=== PATIENT | male | born 1950 | race Caucasian/White ===

== ENCOUNTER 2017-04-01 21:16 | Emergency (ER) | payer MEDICARE, BC ==
[2017-04-01 22:04] VITALS: BP 164/72
[2017-04-01] MEDS ORDERED: Ketorolac 30 MG/ML SDV IM ONE (22:19)
--- NOTE | 2017-04-01 22:27 | EDM.PDOC ---
ED HPI GENERAL MEDICAL PROBLEM - General Chief Complaint: Back Pain or Injury Stated Complaint: PULLED MUSCLE [id number] Time Seen by Provider: 04/01/17 22:15 Source of Information: Reports: Patient History Limitations: Reports: No Limitations - History of Present Illness INITIAL COMMENTS - FREE TEXT/NARRATIVE: Patient has emergency department today complaining of mid left-sided back pain and muscle spasm that started tonight. 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 Once he got home he developed a severe pain under his left scapula in his left back. He denies any falls or trauma to the area. He denies any rash to the area. He denies any lower back pain. He denies any numbness or tingling to his lower extremities. He denies any change functionality of his lower extremity. He denies any loss of bowel or bladder habits. He has tried some Tylenol as well as his naproxen and tramadol without relief of the pain. He has also tried ice or heat or massage to the area without improvement of the pain. Upper Back Pain Score (Numeric/FACES): 8 - Related Data Allergies Allergy/AdvReac Type Severity Reaction Status Date / Time narcotic pain meds Allergy Hallucinati Uncoded 04/01/17 21:55 ons Home Meds: Home Meds Carvedilol [Carvedilol] 3.125 mg PO DAILY 05/08/15 [History] Hydrochlorothiazide 25 mg PO DAILY 05/08/15 [History] Levothyroxine 125 mcg PO ACBREAKFAST 05/08/15 [History] Naproxen [Naproxen] 500 mg PO DAILY PRN 05/08/15 [History] traMADol [Ultram] 50 mg PO Q4H PRN 05/08/15 [History] Hydroxychloroquine Sulfate 200 mg PO BID 04/01/17 [History] Tamsulosin HCl [Flomax] 0.4 mg PO DAILY 04/01/17 [History] sulfaSALAzine [sulfaSALAzine DR] 500 mg PO DAILY 04/01/17 [History] Past Medical History HEENT History: Reports: Hard of Hearing, Impaired Vision Cardiovascular History: Reports: Automatic Implantable Cardioverter Defibrillators, Heart Valve Replacement, High Cholesterol, Pacemaker Genitourinary History: Reports: Prostate Disorder Musculoskeletal History: Reports: Arthritis, Osteoarthritis - Past Surgical History Cardiovascular Surgical History: Reports: Other (See Below) Other Cardiovascular Surgeries/Procedures: open heart Musculoskeletal Surgical History: Reports: Hip Replacement Social & Family History - Family History Family Medical History: Noncontributory - Tobacco Use Smoking Status *Q: Former Smoker Used Tobacco, but Quit: Yes Month Tobacco Last Used: 2003 Second Hand Smoke Exposure: No - Caffeine Use Caffeine Use: Reports: Coffee - Recreational Drug Use Recreational Drug Use: No ED ROS GENERAL - Review of Systems Review Of Systems: ROS reveals no pertinent complaints other than HPI. ED EXAM,LOWER BACK PAIN/INJURY - Physical Exam Exam: See Below Exam Limited By: No Limitations General Appearance: Alert, Mild Distress Throat/Mouth: Normal Inspection, Normal Lips Head: Atraumatic, Normocephalic Neck: Normal Inspection, Supple, Non-Tender Respiratory/Chest: No Respiratory Distress, Lungs Clear, Normal Breath Sounds, No Accessory Muscle Use Cardiovascular: Normal Peripheral Pulses, Regular Rate, Rhythm GI/Abdominal: Normal Bowel Sounds, Soft (Male) Exam: Deferred Rectal (Males) Exam: Deferred Back Exam: Decreased Range of Motion, Muscle Spasm (Muscle spasms below the left scapula. There is no rash or breaks in the skin.). No: CVA Tenderness (L) , CVA Tenderness (R), Paraspinal Tenderness, Vertebral Tenderness Extremities: Normal Inspection, Normal Range of Motion, Non-Tender, Normal Capillary Refill Neurological: Alert, Normal Mood/Affect, Normal Dorsiflexion, CN II-XII Intact, Normal Plantar Flexion, No Motor/Sensory Deficits, Oriented x 3 DTR - Lower Extremities: 2+: Knee (R), Knee (L), Ankle (R), Ankle (L) Psychiatric: Anxious Skin Exam: Warm, Dry, Intact, Normal Color, No Rash Course - Vital Signs Last Recorded V/S: Last Vital Signs Temp 37.1 C 04/01/17 22:01 Pulse 76 04/01/17 22:01 Resp 16 04/01/17 22:01 BP 164/72 H 04/01/17 22:01 Pulse Ox 96 04/01/17 22:01 - Orders/Labs/Meds Meds: Medications Discontinued Medications Generic Name Dose Route Start Last Admin Trade Name Freq PRN Reason Stop Dose Admin Ketorolac Tromethamine 30 mg 04/01/17 22:19 04/01/17 22:23 Toradol IM 04/01/17 22:20 30 mg ONETIME ONE Administration - Re-Assessments/Exams Free Text/Narrative Re-Assessment/Exam: 04/01/17 22:33 Expended patient that this is consistent with a muscle spasm and/or muscle strain. I would like to give him a shot of Toradol as well as Norflex although he is driving himself. He would prefer to go home with some oral medications and see if that works. We did give him a shot of Toradol and some Flexeril to take once he gets home conscience sedation. He was comfortable with this plan. Although he does complain of this pain that is under scapula that Radiates around to his axilla. If he does develop painful scaly rash it may be herpes zoster or shingles if this does develop please contact the emergency department for further care. I think that this is highly unlikely as the patient did quite a bit of physical labor today and it developed after this. Departure - Departure Time of Disposition: 22:23 Disposition: Home, Self-Care 01 Clinical Impression: Muscle spasm of back - Discharge Information Instructions: Muscle Cramps and Spasms, [id number], Back Injury Prevention, [id number], Muscle Strain, [id number], Pain Medicine Instructions, Easy-to- Read Forms: ED Department Discharge Additional Instructions: Tylenol and your naproxen and tramadol as needed for muscle spasm and back pain. Flexeril, 1 tablet three times aday as needed for muscle spasms back pain. Caution sedation. 3 sent home from the ED. RX given to the patient. Heat or Ice to the sore areas which ever is most effective for you. Continue to keep mobile and stretch to prevent getting worsening muscle spasms. Return to the ED if new or worsening symptoms. Follow with primary care provider in the next 4-6 days if not improving sooner if worse. - Assessment/Plan Assessment:: Muscle spasm in the back. Left below scapula. Plan: Tylenol and your naproxen and tramadol as needed for muscle spasm and back pain. Flexeril, 1 tablet three times aday as needed for muscle spasms back pain. Caution sedation. 3 sent home from the ED. RX given to the patient. Heat or Ice to the sore areas which ever is most effective for you. Continue to keep mobile and stretch to prevent getting worsening muscle spasms. Return to the ED if new or worsening symptoms. Follow with primary care provider in the next 4-6 days if not improving sooner if worse.
[2017-04-01] MEDS ORDERED: Cyclobenzaprine 10 MG Tab ONE (22:28)
== END 2017-04-01 22:35 | disposition home or self-care (01) ==
LOC: DL.ED 21:16
DX: M62.830 Muscle spasm of back (principal); E78.00 Pure hypercholesterolemia, unspecified; Z95.810 Presence of automatic (implantable) cardiac defibrillator; Z95.2 Presence of prosthetic heart valve; Z87.891 Personal history of nicotine dependence; Z79.899 Other long term (current) drug therapy; Z88.5 Allergy status to narcotic agent
CPT/HCPCS: 96372; 99283; J1885

== ENCOUNTER 2018-07-20 01:32 | Emergency (ER) | payer MEDICARE, BC ==
[2018-07-20] MEDS ORDERED: Sodium Chloride 0.9% 1,000 ML IV ONE (02:38)
[2018-07-20 03:00] LABS: ANION GAP 15.4; CHLORIDE,CL 104 mmol/L (101-111); SODIUM,NA 139 mmol/L (135-145)
--- NOTE | 2018-07-20 03:03 | EDM.PDOC ---
ED HPI GENERAL MEDICAL PROBLEM - General Chief Complaint: Cardiovascular Problem Stated Complaint: MAY HAVE TAKEN TOO MUCH MEDS- HAS PACE [employer]ER Time Seen by Provider: 07/20/18 02:15 Source of Information: Reports: Patient History Limitations: Reports: No Limitations - History of Present Illness INITIAL COMMENTS - FREE TEXT/NARRATIVE: ED with c/o heart punding, Noted started fter taking 2 immodium at 1145 tonight. Concerned had taken to many. Hx diarrhea x 2 days. * loose brown stools between supper and 2330. No fever or chills. No immediate family memebers ill with similar symptoms. No abdominal pain. - Related Data Allergies Allergy/AdvReac Type Severity Reaction Status Date / Time narcotic pain meds Allergy Hallucinati Uncoded 12/25/17 02:20 ons Home Meds: Home Meds Carvedilol 3.125 mg PO DAILY 05/08/15 [History] Hydrochlorothiazide 25 mg PO DAILY 05/08/15 [History] Levothyroxine 125 mcg PO ACBREAKFAST 05/08/15 [History] Naproxen 500 mg PO DAILY PRN 05/08/15 [History] traMADol [Ultram] 50 mg PO DAILY PRN 05/08/15 [History] Hydroxychloroquine Sulfate 100 mg PO BID 04/01/17 [History] Tamsulosin HCl [Flomax] 0.4 mg PO DAILY 04/01/17 [History] Albuterol [Ventolin HFA] 2 puff INH Q4HR 12/25/17 [History] Past Medical History HEENT History: Reports: Hard of Hearing, Impaired Vision Cardiovascular History: Reports: Automatic Implantable Cardioverter Defibrillators, Heart Valve Replacement, High Cholesterol, Pacemaker Genitourinary History: Reports: Prostate Disorder Musculoskeletal History: Reports: Arthritis, Osteoarthritis - Past Surgical History Cardiovascular Surgical History: Reports: Other (See Below) Other Cardiovascular Surgeries/Procedures: open heart Musculoskeletal Surgical History: Reports: Hip Replacement Social & Family History - Family History Family Medical History: Noncontributory - Tobacco Use Smoking Status *Q: Never Smoker - Caffeine Use Caffeine Use: Reports: Coffee - Recreational Drug Use Recreational Drug Use: No ED ROS GENERAL - Review of Systems Review Of Systems: ROS reveals no pertinent complaints other than HPI. Constitutional: Reports: Chills, Malaise HEENT: Reports: No Symptoms Respiratory: Reports: No Symptoms Cardiovascular: Reports: Palpitations Endocrine: Reports: No Symptoms GI/Abdominal: Reports: No Symptoms Skin: Reports: No Symptoms Neurological: Reports: No Symptoms ED EXAM, GENERAL - Physical Exam Exam: See Below Exam Limited By: No Limitations General Appearance: Alert, No Apparent Distress Eye Exam: Bilateral Eye: EOMI Ears: Normal External Exam Nose: Normal Inspection Throat/Mouth: Normal Inspection Head: Atraumatic, Normocephalic Neck: Normal Inspection Respiratory/Chest: No Respiratory Distress Cardiovascular: Normal Peripheral Pulses GI/Abdominal: Soft, Abnormal Bowel Sounds (hyperactive). No: Distended, Tender Back Exam: Normal Inspection, Full Range of Motion Extremities: Normal Inspection, Normal Range of Motion Neurological: Alert, Oriented, Normal Cognition Psychiatric: Normal Affect, Normal Mood Skin Exam: Warm, Dry, Intact, Normal Color EKG INTERPRETATION Rhythm: Other (atrial sensed ventricular paced rhythm) Course - Vital Signs Last Recorded V/S: Last Vital Signs Temp 97.7 F 07/20/18 02:15 Pulse 84 07/20/18 02:15 Resp 19 07/20/18 02:15 BP 132/66 07/20/18 02:15 Pulse Ox 96 07/20/18 02:15 - Orders/Labs/Meds Orders: Active Orders 24 hr Category Date Time Status EKG 12 Lead [EKG Documentation Completion] [RC] ROUTINE Care 07/20/18 02:25 Active Labs: Laboratory Tests 07/20/18 07/20/18 07/20/18 Range/Units 02:35 02:35 02:35 WBC 11.2 H (5.0-10.0) 10^3/uL RBC 5.62 (4.6-6.2) 10^6/uL Hgb 15.2 (14.0-18.0) g/dL Hct 45.3 (40.0-54.0) % MCV 80.6 (80-100) fL MCH 27.0 (27.0-34.0) pg MCHC 33.6 (33.0-35.0) g/dL Plt Count 174 (150-450) 10^3/uL Neut % (Auto) 70.2 (42.2-75.2) % Lymph % (Auto) 14.1 L (20.5-50.1) % [place] % (Auto) 11.8 H (2-8) % Eos % (Auto) 3.4 H (1.0-3.0) % Baso % (Auto) 0.5 (0.0-1.0) % Sodium 139 (135-145) mmol/L Potassium 3.4 L (3.6-5.0) mmol/L Chloride 104 (101-111) mmol/L Carbon Dioxide 23.0 (21.0-31.0) mmol/L Anion Gap 15.4 BUN 17 (7-18) mg/dL Creatinine 1.1 (0.6-1.3) mg/dL Est Cr Clr Drug Dosing 65.17 mL/min Estimated GFR (MDRD) > 60 BUN/Creatinine Ratio 15.45 Glucose 107 H (74-105) mg/dL Lactic Acid 1.2 (0.5-2.2) mmol/L Calcium 9.5 (8.4-10.2) mg/dl Total Bilirubin 0.8 (0.2-1.0) mg/dL AST 26 (10-42) IU/L ALT 18 (10-60) IU/L Alkaline Phosphatase 64 (42-121) IU/L Troponin I < 0.02 (0.00-0.02) ng/ml Total Protein 7.1 (6.7-8.2) g/dl Albumin 4.0 (3.2-5.5) g/dl Globulin 3.1 Albumin/Globulin Ratio 1.29 Meds: Medications Discontinued Medications Generic Name Dose Route Start Last Admin Trade Name Freq PRN Reason Stop Dose Admin Sodium Chloride 1,000 mls @ 1,000 mls/hr 07/20/18 02:38 07/20/18 02:40 Normal Saline IV 07/20/18 03:37 1,000 mls/hr .BOLUS ONE Administration Departure - Departure Time of Disposition: 03:31 Disposition: Home, Self-Care 01 Condition: Good Clinical Impression: Palpitations Diarrhea Qualifiers: Diarrhea type: unspecified type Qualified Code(s): R19.7 - Diarrhea, unspecified Instructions: Diarrhea, Adult, Palpitations Forms: ED Department Discharge Additional Instructions: light bland diet advance as tolerated hydrate light activity follow up if symptoms worsen - My Orders Last 24 Hours: My Active Orders 07/20/18 02:25 EKG 12 Lead [EKG Documentation Completion] [RC] ROUTINE - Assessment/Plan Last 24 Hours: My Active Orders 07/20/18 02:25 EKG 12 Lead [EKG Documentation Completion] [RC] ROUTINE
[2018-07-20 04:20] VITALS: BP 125/63; PULSE 78
== END 2018-07-20 03:54 | disposition home or self-care (01) ==
LOC: DL.ED 01:32
DX: R00.2 Palpitations (principal); R19.7 Diarrhea, unspecified; Z79.899 Other long term (current) drug therapy; Z88.5 Allergy status to narcotic agent
CPT/HCPCS: 36415; 80053; 83605; 84484; 85025; 93005; 96360; 99284; J7030; 99283

== ENCOUNTER → 2018-07-26 | Outpatient (CLI) | payer MEDICARE, BC | LOC: DL.CLIN 09:00 | CPT/HCPCS: 99213 ==